=== PATIENT | female | born 1950 | race Caucasian/White ===

== ENCOUNTER 2020-11-05 15:30 | Inpatient (IN) | payer MEDICARE, MEDICAID ==
[2020-11-05] MEDS ORDERED: Benzonatate 100 MG CAP PO PRN (19:44)
[2020-11-05] MEDS ORDERED: Albuterol Sulfate 2.5 mg/3 ml Neb NEB PRN (20:00)
[2020-11-05] MEDS: levETIRAcetam 250 MG TAB PO SCH (20:23)
[2020-11-05] MEDS: Potassium Chloride 20 MEQ TAB PO SCH (20:23)
[2020-11-05] MEDS: PHENOBARBITAL 64.8 MG PO SCH (20:23)
[2020-11-05] MEDS ORDERED: Non-Formulary Item 1 EACH (Albuterol Sulfate [Proair Hfa] 8.5 GM Hfa.Aer.Ad) INH SCH (21:00)
[2020-11-05] MEDS: Acetaminophen 325 MG TAB PO PRN (23:05)
[2020-11-06 06:09] LABS: #Basophils 0.1 thou/uL (0.0-0.2); #Eosinphils 0.1 thou/uL (0.0-0.7); #Lymphocytes 4.2 thou/uL (1.20-3.40); #Monocytes 0.8 thou/uL (0.11-0.59); %Basophils 0.8 % (0.0-1.0); %Eosinophils 0.9 % (0.0-10.0); %Lymphocytes 27.5 % (21.0-51.0); %Neutrophils 65.9 % (42.0-75.0); Hemoglobin 13.3 g/dL (12.0-16.0); Mean Corpuscular HGB CONC 31.4 g/dL (32.0-36.0); Mean Corpuscular Hemoglobin 29.6 pg (27.0-31.0); Mean Platelet Volume 7.3 fL (7.4-10.4); Platelet Count 217 thou/uL (130-400); RBC Distribution Width 13.5 % (11.5-14.5); White Blood Cell (WBC) Count 15.2 thou/uL (4.8-10.8)
[2020-11-06 06:26] LABS: ALT (SGPT) 23 U/L (8-55); AST (SGOT) 11 U/L (5-34); Albumin 3.3 g/dL (3.4-4.8); Alkaline Phosphatase 68 U/L (40-110); Anion Gap 14 mmol/L (10-20); BUN (Urea Nitrogen) 25 mg/dL (9.8-20.1); Bilirubin, Total 0.2 mg/dL (0.2-1.2); Calc. Creatinine Clearance 126 mL/min (70-130); Calcium 8.6 mg/dL (7.8-10.44); Carbon Dioxide 31 mmol/L (23-31); Chloride 99 mmol/L (98-107); Globulin 2.7 g/dL (2.4-3.5); Glucose 138 mg/dL (80-115); Potassium 4.3 mmol/L (3.5-5.1); Sodium 140 mmol/L (136-145)
[2020-11-06] MEDS ORDERED: Triamcinolone 0.1% Cream 15 GM TUBE TOP PRN (07:14)
[2020-11-06] MEDS: predniSONE 20 MG TAB PO SCH (09:23)
[2020-11-06] MEDS: levETIRAcetam 250 MG TAB PO SCH ×2 (09:23→20:31)
[2020-11-06] MEDS: Enoxaparin Sodium 40 MG/0.4 ML SYRINGE SC SCH (09:23)
[2020-11-06] MEDS: Amlodipine 10 MG TAB PO SCH (09:24)
[2020-11-06] MEDS: Lisinopril 5 MG TAB PO SCH (09:24)
[2020-11-06] MEDS: Furosemide 40 MG TAB PO SCH ×2 (09:29→15:01)
[2020-11-06] MEDS: Potassium Chloride 20 MEQ TAB PO SCH ×2 (09:29→20:31)
[2020-11-06] MEDS: Triamcinolone 0.1% Cream 15 GM TUBE TOP PRN (09:47)
[2020-11-06] MEDS: diphenhydrAMINE 25 MG CAP PO PRN ×2 (11:34→20:30)
[2020-11-06] MEDS: Mometasone/Formoterol 200/5 60 PUFF INH SCH (18:16)
[2020-11-06] MEDS: PHENOBARBITAL 64.8 MG PO SCH (20:47)
[2020-11-07] MEDS: Acetaminophen 325 MG TAB PO PRN ×3 (00:01→23:21)
[2020-11-07] MEDS: Mometasone/Formoterol 200/5 60 PUFF INH SCH ×2 (06:33→21:00)
[2020-11-07] MEDS: Lisinopril 5 MG TAB PO SCH (08:06)
[2020-11-07] MEDS: Potassium Chloride 20 MEQ TAB PO SCH ×2 (08:06→20:14)
[2020-11-07] MEDS: Enoxaparin Sodium 40 MG/0.4 ML SYRINGE SC SCH (08:06)
[2020-11-07] MEDS: Amlodipine 10 MG TAB PO SCH (08:07)
[2020-11-07] MEDS: levETIRAcetam 250 MG TAB PO SCH ×2 (08:07→20:13)
[2020-11-07] MEDS: Furosemide 40 MG TAB PO SCH ×2 (08:07→13:41)
[2020-11-07] MEDS: predniSONE 20 MG TAB PO SCH (08:08)
[2020-11-07] MEDS: diphenhydrAMINE 25 MG CAP PO PRN ×2 (11:32→23:22)
[2020-11-07] MEDS: PHENOBARBITAL 64.8 MG PO SCH (20:14)
[2020-11-08] MEDS: Enoxaparin Sodium 40 MG/0.4 ML SYRINGE SC SCH (09:10)
[2020-11-08] MEDS: predniSONE 20 MG TAB PO SCH (09:12)
[2020-11-08] MEDS: levETIRAcetam 250 MG TAB PO SCH ×2 (09:12→21:00)
[2020-11-08] MEDS: Lisinopril 5 MG TAB PO SCH (09:13)
[2020-11-08] MEDS: Potassium Chloride 20 MEQ TAB PO SCH ×2 (09:13→21:13)
[2020-11-08] MEDS: Amlodipine 10 MG TAB PO SCH (09:13)
[2020-11-08] MEDS: Mometasone/Formoterol 200/5 60 PUFF INH SCH ×2 (09:14→21:00)
[2020-11-08] MEDS: Furosemide 40 MG TAB PO SCH ×2 (09:33→13:07)
[2020-11-08] MEDS: PHENOBARBITAL 64.8 MG PO SCH (21:14)
[2020-11-08] MEDS: diphenhydrAMINE 25 MG CAP PO PRN (21:21)
[2020-11-08] MEDS: Acetaminophen 325 MG TAB PO PRN (21:21)
[2020-11-09] MEDS: Potassium Chloride 20 MEQ TAB PO SCH ×2 (10:01→20:47)
[2020-11-09] MEDS: Amlodipine 10 MG TAB PO SCH (10:02)
[2020-11-09] MEDS: Lisinopril 5 MG TAB PO SCH (10:02)
[2020-11-09] MEDS: predniSONE 20 MG TAB PO SCH (10:03)
[2020-11-09] MEDS: levETIRAcetam 250 MG TAB PO SCH ×2 (10:03→20:46)
[2020-11-09] MEDS: Furosemide 40 MG TAB PO SCH ×2 (10:03→13:30)
[2020-11-09] MEDS: Mometasone/Formoterol 200/5 60 PUFF INH SCH ×2 (10:04→20:47)
[2020-11-09] MEDS: Enoxaparin Sodium 40 MG/0.4 ML SYRINGE SC SCH (10:04)
[2020-11-09] MEDS: diphenhydrAMINE 25 MG CAP PO PRN ×2 (10:06→20:47)
[2020-11-09] MEDS: PHENOBARBITAL 64.8 MG PO SCH (20:47)
[2020-11-10] MEDS: levETIRAcetam 250 MG TAB PO SCH ×2 (09:55→20:18)
[2020-11-10] MEDS: Amlodipine 10 MG TAB PO SCH (09:56)
[2020-11-10] MEDS: Potassium Chloride 20 MEQ TAB PO SCH ×2 (09:57→20:18)
[2020-11-10] MEDS: Furosemide 40 MG TAB PO SCH ×2 (09:57→13:04)
[2020-11-10] MEDS: Enoxaparin Sodium 40 MG/0.4 ML SYRINGE SC SCH (09:58)
[2020-11-10] MEDS: Lisinopril 5 MG TAB PO SCH (09:58)
[2020-11-10] MEDS: predniSONE 20 MG TAB PO SCH (09:58)
[2020-11-10] MEDS: Mometasone/Formoterol 200/5 60 PUFF INH SCH ×2 (10:01→20:20)
[2020-11-10] MEDS: Acetaminophen 325 MG TAB PO PRN (10:12)
[2020-11-10] MEDS: PHENobarbital 32.4 MG TAB PO SCH (20:18)
[2020-11-10] MEDS: diphenhydrAMINE 25 MG CAP PO PRN (21:48)
[2020-11-11] MEDS: Acetaminophen 325 MG TAB PO PRN (08:50)
[2020-11-11] MEDS: Amlodipine 10 MG TAB PO SCH (08:51)
[2020-11-11] MEDS: Potassium Chloride 20 MEQ TAB PO SCH ×2 (08:51→20:51)
[2020-11-11] MEDS: Lisinopril 5 MG TAB PO SCH (08:51)
[2020-11-11] MEDS: Enoxaparin Sodium 40 MG/0.4 ML SYRINGE SC SCH (08:51)
[2020-11-11] MEDS: Furosemide 40 MG TAB PO SCH ×2 (08:51→12:11)
[2020-11-11] MEDS: predniSONE 20 MG TAB PO SCH (08:52)
[2020-11-11] MEDS: levETIRAcetam 250 MG TAB PO SCH ×2 (08:52→20:51)
[2020-11-11] MEDS: Mometasone/Formoterol 200/5 60 PUFF INH SCH ×2 (08:53→20:53)
[2020-11-11 10:06] VITALS: BMI 53.6
[2020-11-11] MEDS: PHENobarbital 32.4 MG TAB PO SCH (20:51)
[2020-11-11] MEDS: diphenhydrAMINE 25 MG CAP PO PRN (20:51)
[2020-11-12] MEDS: Enoxaparin Sodium 40 MG/0.4 ML SYRINGE SC SCH (08:47)
[2020-11-12] MEDS: levETIRAcetam 250 MG TAB PO SCH ×2 (08:48→21:29)
[2020-11-12] MEDS: Lisinopril 5 MG TAB PO SCH (08:48)
[2020-11-12] MEDS: predniSONE 20 MG TAB PO SCH (08:49)
[2020-11-12] MEDS: Potassium Chloride 20 MEQ TAB PO SCH ×2 (08:49→21:30)
[2020-11-12] MEDS: Amlodipine 10 MG TAB PO SCH (08:49)
[2020-11-12] MEDS: Furosemide 40 MG TAB PO SCH ×2 (08:49→12:20)
[2020-11-12] MEDS: Mometasone/Formoterol 200/5 60 PUFF INH SCH ×2 (08:53→21:00)
[2020-11-12] MEDS ORDERED: Ibuprofen 600 MG TAB PO PRN (16:00)
[2020-11-12] MEDS: PHENobarbital 32.4 MG TAB PO SCH (21:30)
[2020-11-12] MEDS: Acetaminophen 325 MG TAB PO PRN (21:38)
[2020-11-12] MEDS: diphenhydrAMINE 25 MG CAP PO PRN (21:40)
[2020-11-13] MEDS: Lisinopril 5 MG TAB PO SCH (10:20)
[2020-11-13] MEDS: Enoxaparin Sodium 40 MG/0.4 ML SYRINGE SC SCH (10:20)
[2020-11-13] MEDS: diphenhydrAMINE 25 MG CAP PO PRN (10:20)
[2020-11-13] MEDS: Amlodipine 10 MG TAB PO SCH (10:21)
[2020-11-13] MEDS: predniSONE 20 MG TAB PO SCH (10:21)
[2020-11-13] MEDS: levETIRAcetam 250 MG TAB PO SCH ×2 (10:23→21:28)
[2020-11-13] MEDS: Furosemide 40 MG TAB PO SCH ×2 (10:23→13:16)
[2020-11-13] MEDS: Potassium Chloride 20 MEQ TAB PO SCH ×2 (10:23→21:28)
[2020-11-13] MEDS: Mometasone/Formoterol 200/5 60 PUFF INH SCH ×2 (10:28→21:00)
[2020-11-13] MEDS: PHENobarbital 32.4 MG TAB PO SCH (21:27)
[2020-11-14] MEDS: diphenhydrAMINE 25 MG CAP PO PRN ×2 (00:13→20:29)
[2020-11-14] MEDS: Acetaminophen 325 MG TAB PO PRN ×3 (00:13→20:28)
[2020-11-14] MEDS: Amlodipine 10 MG TAB PO SCH (08:42)
[2020-11-14] MEDS: Enoxaparin Sodium 40 MG/0.4 ML SYRINGE SC SCH (08:42)
[2020-11-14] MEDS: Furosemide 40 MG TAB PO SCH ×2 (08:43→12:56)
[2020-11-14] MEDS: Lisinopril 5 MG TAB PO SCH (08:43)
[2020-11-14] MEDS: predniSONE 20 MG TAB PO SCH (08:44)
[2020-11-14] MEDS: Potassium Chloride 20 MEQ TAB PO SCH ×2 (08:44→20:29)
[2020-11-14] MEDS: levETIRAcetam 250 MG TAB PO SCH ×2 (08:45→20:29)
[2020-11-14] MEDS: Mometasone/Formoterol 200/5 60 PUFF INH SCH ×2 (08:46→20:30)
[2020-11-14] MEDS: PHENobarbital 32.4 MG TAB PO SCH (20:28)
[2020-11-15 05:29] VITALS: BP 118/52; TEMP 98.6
[2020-11-15] MEDS: levETIRAcetam 250 MG TAB PO SCH (08:40)
[2020-11-15] MEDS: predniSONE 20 MG TAB PO SCH (08:40)
[2020-11-15] MEDS: Amlodipine 10 MG TAB PO SCH (08:42)
[2020-11-15] MEDS: Lisinopril 5 MG TAB PO SCH (08:42)
[2020-11-15] MEDS: Potassium Chloride 20 MEQ TAB PO SCH (08:43)
[2020-11-15] MEDS: Furosemide 40 MG TAB PO SCH ×2 (08:43→13:00)
[2020-11-15] MEDS: Mometasone/Formoterol 200/5 60 PUFF INH SCH (08:44)
[2020-11-15] MEDS: Triamcinolone 0.1% Cream 15 GM TUBE TOP PRN (08:45)
[2020-11-15] MEDS: Enoxaparin Sodium 40 MG/0.4 ML SYRINGE SC SCH (08:45)
== END 2020-11-15 14:30 | disposition home or self-care (01) | DRG 948 ==
LOC: BURMED 16:50
PROVIDERS: ADMIT Family Medicine; ATTEND Family Medicine
DX: R53.81 Other malaise (principal); J44.1 Chronic obstructive pulmonary disease with (acute) exacerbation; Z68.43 Body mass index [BMI] 50.0-59.9, adult; E66.01 Morbid (severe) obesity due to excess calories; G47.33 Obstructive sleep apnea (adult) (pediatric); G40.909 Epilepsy, unspecified, not intractable, without status epilepticus; R26.89 Other abnormalities of gait and mobility; E78.5 Hyperlipidemia, unspecified; I10 Essential (primary) hypertension
CPT/HCPCS: 36415; 80053; 85025; 94640; J1650; J7512; J7620; Q0163